=== PATIENT | female | born 1960 | race Caucasian/White ===

== ENCOUNTER 2023-10-12 08:51 | Day surgery (SDC) | payer BC ==
[~2023-10-12] VITALS: Ht 162.6 cm; Wt 92.0 kg
[2023-10-12 09:15] VITALS: BP 131/69; PULSE 70; TEMP 97.6
[2023-10-12] MEDS ORDERED: ASPIRIN 81M81 MG/TA2 PO (09:28)
[2023-10-12] MEDS ORDERED: SYNTHROID0.075 MG/T PO (09:29)
[2023-10-12] MEDS ORDERED: VITAMIN D31000 I1 PO (09:29)
[2023-10-12] MEDS ORDERED: LIPITOR 10MG10 MG PO (09:29)
[2023-10-12] MEDS ORDERED: MOBIC 7.5MG7.5 MG PO (09:30)
[2023-10-12] MEDS ORDERED: MOUNJARO5 MG/0.5 M SQ (09:30)
[2023-10-12] MEDS ORDERED: CLARITIN 1010 MG/TAB PO (09:31)
[2023-10-12 09:32] VITALS: BP 131/69; PULSE 70; TEMP 97.6
[2023-10-12 11:02] VITALS: BP 105/47; PULSE 79; TEMP 98
[2023-10-12] MEDS ORDERED: CEPHALEXIN500 M1 PO (11:07)
[2023-10-12] MEDS ORDERED: NORCO 325 MG-51 TAB PO (11:07)
[2023-10-12 11:17] VITALS: BP 103/51; PULSE 65
--- NOTE | 2023-10-12 12:00 | NUR ---
1102-PATIENT ARRIVED VIA CART [place] [facility] [place], ALERT AND ORIENTED ON ARRIVAL. VITAL SIGNS TAKEN, VSS. PT DENIES PAIN OR NAUSEA. REPORT OBTAINED FROM OR STAFF. DRESSINGS CDI. PATIENT REPORTS NUMBNESS TO LEFT THUMB, ABLE TO MOVE FINGERS, CAP REFILL <2 SECONDS. UPDATE GIVEN TO PATIENT'S SPOUSE AT BEDSIDE, PLAN OF CARE REVIEWED. PO INTAKE PROVIDED. 1117-PATIENT TOLERATING PO INTAKE WELL, DENIES COMPLAINTS. VSS. 1130-DISCHARGE INSTRUCTIONS REVIEWED WITH PT AND SPOUSE, QUESTIONS INVITED. IV CATHETER DISCONTINUED, TIP INTACT. PRESSURE HELD AND BANDAGE APPLIED. PATIENT DRESSED INDEPENDENTLY. 1145-PATIENT DISCHARGED HOME TO [facility] VIA WHEELCHAIR, ACCOMPANIED BY SPOUSE. ALL BELONGINGS AND DC PAPERWORK SENT WITH PT.
== END 2023-10-12 11:45 | disposition home or self-care (01) ==
LOC: SDCO 08:51
DX: M65.312 Trigger thumb, left thumb (principal)
CPT/HCPCS: J0665; J0690; J2704; J3010; J7120